=== PATIENT | male | born 1975 | race Caucasian/White ===

== ENCOUNTER 2016-06-02 12:31 | Emergency (ER) | payer BC, OTHER ==
[2016-06-02] MEDS ORDERED: Ketorolac INJ* 30 MG/ML 1 ML VIAL IM ONE (13:50)
--- NOTE | 2016-06-02 14:00 | UC ---
Back Pain HPI - HPI Summary HPI Summary: While sitting down to tie shoe yesterday, felt sudden pain/pull in low back. Has had intense pain with difficulty changing positions since then. Denies any numbness, weakness, or pins and needles. Reports normal bowel and bladder function. - History of Current Complaint Chief Complaint: UCBackPain Stated Complaint: BACK PAIN Time Seen by Provider: 06/02/16 13:34 Hx Obtained From: Patient Onset/Duration: Sudden Onset Timing: Constant Severity Initially: Severe Severity Currently: Severe Back Pain: Is Discrete @ Character: Aching, Spasmodic, Stiffness Aggravating: Movement, Walking Alleviating: Rest Associated Signs And Symptoms: Negative: Fever, Weakness, Numbness, Tingling, Bladder Incontinence, Bowel Incontinence - Allergies/Home Medications Allergies/Adverse Reactions: Allergies Allergy/AdvReac Type Severity Reaction Status Date / Time No Known Allergies Allergy Verified 06/02/16 13:17 Home Medications: Home Medications Omeprazole CAP* [Prilosec CAP* 20 MG] 20 mg PO BID 06/02/16 [History Confirmed 06/02/16] PMH/Surg Hx/FS Hx/Imm Hx Previously Healthy: Yes - Surgical History Surgical History: Yes Surgery Procedure, Year, and Place: HERNIA REPAIR - Family History Known Family History: Negative: Blood Disorder - Social History Lives: With Family Alcohol Use: Weekly Substance Use Type: None Smoking Status (MU): Never Smoked Tobacco Review of Systems Constitutional: Negative Skin: Negative Eyes: Negative ENT: Negative Respiratory: Negative Cardiovascular: Negative Gastrointestinal: Negative Genitourinary: Negative Motor: Negative Neurovascular: Negative Musculoskeletal: Decreased ROM - back, Myalgia Neurological: Negative Psychological: Negative All Other Systems Reviewed And Are Negative: Yes Physical Exam Triage Information Reviewed: Yes Appearance: Well-Appearing, Pain Distress - came in on crutches, significant difficulty with changing positions Vital Signs: Initial Vital Signs Temp 98.5 F 06/02/16 13:09 Pulse 73 06/02/16 13:09 Resp 16 06/02/16 13:09 BP 156/99 06/02/16 13:09 Pulse Ox 100 06/02/16 13:09 Vital Signs Reviewed: Yes Eye Exam: Normal Eyes: Positive: Conjunctiva Clear ENT Exam: Normal ENT: Positive: Normal ENT inspection, Hearing grossly normal, Pharynx normal, TMs normal Dental Exam: Normal Neck exam: Normal Neck: Positive: Supple, Nontender, No Lymphadenopathy Respiratory Exam: Normal Respiratory: Positive: Chest non-tender, Lungs clear, Normal breath sounds, No respiratory distress, No accessory muscle use Cardiovascular Exam: Normal Cardiovascular: Positive: RRR, No Murmur Musculoskeletal: Positive: Strength Intact - in BLE, ROM Intact - in BLE, No Edema Neurological Exam: Normal, Other - DTRs 2+ BLE Psychological Exam: Normal Skin Exam: Normal Back Pain Course/Dx - Differential Dx/Diagnosis Provider Diagnoses: low back strain. elevated blood pressure due to pain Discharge - Discharge Plan Condition: Stable Disposition: HOME Prescriptions: Cyclobenzaprine TAB* [Flexeril TAB*] 10 mg PO TID PRN #15 tab PRN Reason: Pain Ketorolac TAB (NF) [Toradol TAB (NF)] 10 mg PO Q8H #15 tab Patient Education Materials: Low Back Strain (ED), Lower Back Exercises (ED) Referrals: nJ Hilliard MD [Primary Care Provider] - 2 Weeks Additional Instructions: There is no sign today of significant nerve injury or compression in your back. It is definitely possible that all of your pain is coming from injured muscles, and it may take days or weeks to resolve. Use ice or heat (whichever helps more), and do not push yourself to do activities that are painful. I recommend you see Dr. Hilliard for follow up if you do not have clear improvement within the next week.
[2016-06-02 15:11] VITALS: BP 149/100
== END 2016-06-02 15:11 | disposition home or self-care (01) ==
LOC: UCCORT 12:31
DX: S39.012A Strain of muscle, fascia and tendon of lower back, initial encounter (principal); X58.XXXA Exposure to other specified factors, initial encounter; Y93.89 Activity, other specified; Y92.9 Unspecified place or not applicable; R03.0 Elevated blood-pressure reading, without diagnosis of hypertension
CPT/HCPCS: 96372; 99212; G0463; J1885

== ENCOUNTER 2016-08-29 08:43 | Emergency (ER) | payer OTHER ==
[2016-08-29 09:08] VITALS: BP 141/94
[2016-08-29] MEDS ORDERED: Tetracaine 0.5% OPTH.SOL 4 ML* 1 DROP BTL RIGHT EYE ONE (09:10)
[2016-08-29] MEDS ORDERED: Fluorescein Sodium TOPICAL* 1 MG TEST OPHTHALMIC ONE (09:14)
[2016-08-29] MEDS ORDERED: Eye Irrigation Solution 30 ML BOTTLE RIGHT EYE ONE (09:19)
--- NOTE | 2016-08-29 09:28 | UC ---
Eye Complaint HPI - HPI Summary HPI Summary: right eye redness and swelling, no eye pain , no eye discharge, no change in vision , no photophobia + fb sensation - History of Current Complaint Chief Complaint: UCEye Stated Complaint: RIGHT EYE COMPLAINT Time Seen by Provider: 08/29/16 09:03 Hx Obtained From: Patient Onset/Duration: Gradual Onset, Lasting Days - 1, Still Present Timing: Constant Severity Initially: Moderate Severity Currently: Moderate Location of Injury: Conjunctiva Character: Dull Aggravating Factor(s): Blinking Alleviating Factor(s): Nothing Associated Signs And Symptoms: Positive: Swelling. Negative: Photophobia, Drainage (Clear), Drainage (Purulent), Vision Impairment Bilateral, Vision Impairment Right, Vision Impairment Left, Fever - Allergies/Home Medications Allergies/Adverse Reactions: Allergies Allergy/AdvReac Type Severity Reaction Status Date / Time No Known Allergies Allergy Verified 08/29/16 08:58 Home Medications: Home Medications Valsartan TAB* [Diovan TAB*] 40 mg PO DAILY 08/29/16 [History Confirmed 08/29/16 ] PMH/Surg Hx/FS Hx/Imm Hx Cardiovascular History: Hypertension - Surgical History Surgical History: Yes Surgery Procedure, Year, and Place: HERNIA REPAIR. BLEPHAROPLASTY-BILATERAL , June - Family History Known Family History: Positive: Hypertension Negative: Blood Disorder - Social History Alcohol Use: Occasionally Substance Use Type: None Smoking Status (MU): Never Smoked Tobacco Review of Systems Constitutional: Negative Skin: Negative Eyes: Eye Redness ENT: Negative Respiratory: Negative Cardiovascular: Negative Gastrointestinal: Negative Genitourinary: Negative All Other Systems Reviewed And Are Negative: Yes Physical Exam Triage Information Reviewed: Yes Appearance: Well-Appearing, No Pain Distress, Well-Nourished Vital Signs: Initial Vital Signs Temp 97.7 F 08/29/16 09:00 Pulse 71 08/29/16 09:00 Resp 16 08/29/16 09:00 BP 141/94 08/29/16 09:00 Pulse Ox 99 08/29/16 09:00 Vital Signs Reviewed: Yes Eye Exam: Normal Eyes: Positive: Conjunctiva Inflamed, Other: - mild subconjunctival hemorrhage right eye ENT: Positive: Normal ENT inspection, Hearing grossly normal, Pharynx normal Neck exam: Normal Neck: Positive: Supple, Nontender, No Lymphadenopathy Respiratory: Positive: Chest non-tender, Lungs clear, Normal breath sounds Cardiovascular: Positive: RRR, No Murmur, Pulses Normal Eye Complaint Course/Dx - Differential Dx/Diagnosis Provider Diagnoses: subconjunctival hemorrhage right eye Discharge - Discharge Plan Condition: Stable Disposition: HOME Patient Education Materials: Subconjunctival Hemorrhage (ED) Referrals: Jn Hilliard MD [Primary Care Provider] - If Needed
== END 2016-08-29 09:32 | disposition home or self-care (01) ==
LOC: UCCORT 08:43
DX: H11.31 Conjunctival hemorrhage, right eye (principal)
CPT/HCPCS: 99212; A9270-GY; G0463

== ENCOUNTER 2017-10-09 09:47 | Emergency (ER) | payer OTHER ==
[2017-10-09 10:21] VITALS: BP 121/80
--- NOTE | 2017-10-09 10:52 | UC ---
Ear Complaint HPI - HPI Summary HPI Summary: Pt c/o bilateral ear pain. Pt reports that he has been swimming a lot in the last week and has a history of "swimmers ear" - History of Current Complaint Chief Complaint: UCEar Stated Complaint: BI LAT EAR COMP Time Seen by Provider: 10/09/17 10:19 Hx Obtained From: Patient Onset/Duration: Sudden Onset, Lasting Days, Still Present Severity Initially: Mild Severity Currently: Mild Pain Intensity: 3 Associated Signs/Symptoms: Positive: Swelling @ - Allergies/Home Medications Allergies/Adverse Reactions: Allergies Allergy/AdvReac Type Severity Reaction Status Date / Time neosporin otic solution Allergy Swelling Uncoded 10/09/17 10:22 Home Medications: Home Medications Ibuprofen TAB* [Motrin TAB* 400 MG] 400 mg PO ONCE PRN 10/09/17 [History Confirmed 10/09/17] PMH/Surg Hx/FS Hx/Imm Hx Previously Healthy: Yes - Surgical History Surgical History: Yes Surgery Procedure, Year, and Place: HERNIA REPAIR. BLEPHAROPLASTY-BILATERAL , JUNE 2016 - Family History Known Family History: Positive: Hypertension Negative: Blood Disorder - Social History Occupation: Employed Full-time Lives: With Family Alcohol Use: None Substance Use Type: None Smoking Status (MU): Never Smoked Tobacco Have You Smoked in the Last Year: No Review of Systems Constitutional: Negative Skin: Negative Eyes: Negative ENT: Ear Ache Respiratory: Negative Cardiovascular: Negative Gastrointestinal: Negative Genitourinary: Negative Motor: Negative Neurovascular: Negative Musculoskeletal: Negative Neurological: Negative Psychological: Negative Is Patient Immunocompromised?: No All Other Systems Reviewed And Are Negative: Yes Physical Exam Triage Information Reviewed: Yes Appearance: Well-Appearing Vital Signs: Initial Vital Signs Temp 97.8 F 10/09/17 10:14 Pulse 78 10/09/17 10:14 Resp 12 10/09/17 10:14 BP 121/80 10/09/17 10:14 Pulse Ox 100 10/09/17 10:14 Vital Signs Reviewed: Yes Eye Exam: Normal ENT Exam: Other ENT: Positive: Other - bilatera ear canal erythema and mild swelling Dental Exam: Normal Neck exam: Normal Respiratory: Positive: No respiratory distress Musculoskeletal Exam: Normal Neurological Exam: Normal Psychological Exam: Normal Skin Exam: Normal Ear Complaint Course/Dx - Differential Dx/Diagnosis Differential Diagnosis/HQI/PQRI: Otitis Externa, Otitis Media Provider Diagnoses: bilateral otitis externa Discharge - Sign-Out/Discharge Documenting (check all that apply): Patient Departure - Discharge Plan Condition: Stable Disposition: HOME Prescriptions: Acetic Acid 2 % OT Q8H #1 bottle Patient Education Materials: Otitis Externa (ED) Referrals: Jn Hilliard MD [Primary Care Provider] - If Needed - Billing Disposition and Condition Condition: STABLE Disposition: Home
== END 2017-10-09 10:53 | disposition home or self-care (01) ==
LOC: UCCORT 09:47
DX: H60.93 Unspecified otitis externa, bilateral (principal); Z88.3 Allergy status to other anti-infective agents
CPT/HCPCS: 99212; G0463

== ENCOUNTER 2019-03-04 13:45 | Emergency (ER) | payer OTHER ==
--- NOTE | 2019-03-04 15:17 | UC ---
Respiratory Complaint HPI - HPI Summary HPI Summary: 43-year-old male comes in with a chief complaint of chest tightness and shortness of breath. Occurs primarily with activity. He had this more than a year ago and is primary care doctor prescribed Pulmicort and that improved his symptoms. He does have GERD and he treats with Nexium. No runny nose no sore throat no nasal congestion. Has not heard any wheezing. With the patient runs the symptoms worsen. - History of Current Complaint Chief Complaint: UCGeneralIllness Stated Complaint: BRONCHIAL Time Seen by Provider: 03/04/19 15:03 Pain Intensity: 0 - Allergies/Home Medications Allergies/Adverse Reactions: Allergies Allergy/AdvReac Type Severity Reaction Status Date / Time neosporin otic solution Allergy Swelling Uncoded 03/04/19 14:31 Home Medications: Home Medications Divalproex Sodium [Depakote] 2 tab PO DAILY 03/04/19 [History Confirmed 03/04/19 ] Fremanezumab-Vfrm [Ajovy] 1 dose IM MONTHLY 03/04/19 [History Confirmed 03/04/19 ] [place] Carbonate TAB* 2 tab PO DAILY 03/04/19 [History Confirmed 03/04/19] Sertraline* [Zoloft*] 100 mg PO BEDTIME 03/04/19 [History Confirmed 03/04/19] PMH/Surg Hx/FS Hx/Imm Hx Previously Healthy: Yes GI/ History: Gastroesophageal Reflux - Surgical History Surgical History: Yes Surgery Procedure, Year, and Place: HERNIA REPAIR. BLEPHAROPLASTY-BILATERAL , JUNE 2016. Hydroselectomy December 2018 - Family History Known Family History: Positive: Hypertension Negative: Blood Disorder - Social History Alcohol Use: None Substance Use Type: None Smoking Status (MU): Never Smoked Tobacco Have You Smoked in the Last Year: No Review of Systems All Other Systems Reviewed And Are Negative: Yes Constitutional: Positive: Negative Skin: Positive: Negative Eyes: Positive: Negative ENT: Positive: Negative Respiratory: Positive: Shortness Of Breath, Other - see hpi Cardiovascular: Positive: Negative Gastrointestinal: Positive: Negative Motor: Positive: Negative Neurovascular: Positive: Negative Musculoskeletal: Positive: Negative. Negative: Calf Tenderness, Edema Neurological: Positive: Negative Psychological: Positive: Negative Is Patient Immunocompromised?: No Physical Exam Triage Information Reviewed: Yes Appearance: Well-Appearing, No Pain Distress, Well-Nourished Vital Signs: Initial Vital Signs Temp 98.8 F 03/04/19 14:34 Pulse 70 03/04/19 14:34 Resp 16 03/04/19 14:34 BP 157/105 03/04/19 14:34 Pulse Ox 99 03/04/19 14:34 Vital Signs Reviewed: Yes Eye Exam: Normal Eyes: Positive: Conjunctiva Clear ENT: Positive: Pharynx normal, TMs normal Neck: Positive: Supple Respiratory: Positive: Lungs clear, Normal breath sounds, No respiratory distress Cardiovascular: Positive: RRR Musculoskeletal: Positive: Strength Intact, ROM Intact, No Edema - no calf tenderness Neurological: Positive: Alert, Muscle Tone Normal Psychological: Positive: Age Appropriate Behavior Skin Exam: Normal Respiratory Course/Dx - Course Course Of Treatment: Patient reports she's had these symptoms before they got better with Pulmicort. By description it appears to be bronchospasm is giving the problem. By history did not appear to be cardiac in nature. Will prescribe Pulmicort to be used daily and then albuterol to be used as needed. Patient always primary care doctor. Patient is to go the emergency department if worse or any questions or concerns. - Differential Dx/Diagnosis Provider Diagnosis: Bronchospasm Discharge ED - Sign-Out/Discharge Documenting (check all that apply): Patient Departure All imaging exams completed and their final reports reviewed: No Studies - Discharge Plan Condition: Stable Disposition: HOME Prescriptions: Albuterol HFA INHALER* [Ventolin HFA Inhaler*] 2 puff INH Q4H PRN #1 mdi PRN Reason: Wheezing Budesonide Flexhaler 180 (NF) [Pulmicort Flexhaler 180 mcg/act (NF)] 2 puff INH DAILY #1 inh Patient Education Materials: Bronchospasm (ED) Referrals: Jn Hilliard MD [Primary Care Provider] - Additional Instructions: FOLLOW UP WITH YOUR DOCTOR IF NOT COMPLETELY IMPROVED. Continue your Nexium to treat your GERD symptoms. GET REEVALUATED SOONER IF NOT IMPROVING OR WORSE OR ANY QUESTIONS OR CONCERNS. - Billing Disposition and Condition Condition: STABLE Disposition: Home
[2019-03-04 15:24] VITALS: BP 135/92
== END 2019-03-04 15:24 | disposition home or self-care (01) ==
LOC: UCCORT 13:45
DX: J98.01 Acute bronchospasm (principal); K21.9 Gastro-esophageal reflux disease without esophagitis; Z79.899 Other long term (current) drug therapy; Z88.8 Allergy status to other drugs, medicaments and biological substances
CPT/HCPCS: 99212; G0463